=== PATIENT | male | born 1985 | race Caucasian/White ===

== ENCOUNTER 2016-07-02 09:49 | Emergency (ER) | payer SELFPAY ==
[2016-07-02] MEDS ORDERED: Ondansetron 4 MG/2 ML SDV IVPUSH ONE (09:53)
[2016-07-02] MEDS ORDERED: Ketorolac 30 MG/ML SDV IVPUSH ONE (09:53)
[2016-07-02] MEDS ORDERED: Sodium Chloride 0.9% 1,000 ML IV ONE (09:53)
--- NOTE | 2016-07-02 09:53 | EDM.PDOC ---
ED HPI GENERAL MEDICAL PROBLEM - General Chief Complaint: Abdominal Pain Stated Complaint: ABD PAIN Time Seen by Provider: 07/02/16 09:53 Source of Information: Reports: Patient - History of Present Illness INITIAL COMMENTS - FREE TEXT/NARRATIVE: HISTORY AND PHYSICAL: History of present illness: [] Patient has her tenderness right lower quadrant for 2 days no fever nausea vomiting chills sweats Review of systems: As per history of present illness and below otherwise all systems reviewed and negative. Past medical history: As per history of present illness and as reviewed below otherwise noncontributory. Surgical history: As per history of present illness and as reviewed below otherwise noncontributory. Social history: No reported history of drug or alcohol abuse. Family history: As per history of present illness and as reviewed below otherwise noncontributory. Physical exam: HEENT: Atraumatic, normocephalic, pupils reactive, negative for conjunctival pallor or scleral icterus, mucous membranes moist, throat clear, neck supple, nontender, trachea midline. Lungs: Clear to auscultation, breath sounds equal bilaterally, chest nontender. Heart: S1S2, regular, negative for clicks, rubs, or JVD. Abdomen: Soft, nondistended, tender with guarding right lower cord current Negative for masses or hepatosplenomegaly. Negative for costovertebral tenderness. Pelvis: Stable nontender. Genitourinary: Deferred. Rectal: Deferred. Extremities: Atraumatic, negative for cords or calf pain. Neurovascular unremarkable. Neuro: Awake, alert, oriented. Cranial nerves II through XII unremarkable. Cerebellum unremarkable. Motor and sensory unremarkable throughout. Exam nonfocal. Diagnostics: [] Lab as below CT abdomen pelvis with contrast Therapeutics: [] Erica saline 1 L bolus Zofran 8 mg IV Toradol 30 mg IV Cipro 500 by mouth twice a day #20 no refill Toradol 10 mg by mouth 3 times a day when necessary #30 no refill Return if symptoms persist or worsen or fever nausea vomiting chills sweats patient discussed with dr lisa surgeon on-call, he recommends bowel care and RPW Impression: [] Right lower quadrant pain Definitive disposition and diagnosis as appropriate pending reevaluation and review of above. Right Abdominal Pain Score (Numeric/FACES): 4 - Related Data Allergies Allergy/AdvReac Type Severity Reaction Status Date / Time No Known Allergies Allergy Verified 07/02/16 10:08 Home Meds: Home Meds . [No Known Home Meds] 07/02/16 [History] ED ROS GENERAL - Review of Systems Review Of Systems: ROS reveals no pertinent complaints other than HPI. ED EXAM, GI/ABD - Physical Exam Exam: See Below Course - Vital Signs Last Recorded V/S: Last Vital Signs Temp 36.7 C 07/02/16 10:09 Pulse 72 07/02/16 11:43 Resp 16 07/02/16 11:43 BP 122/73 07/02/16 11:43 Pulse Ox 96 07/02/16 11:43 - Orders/Labs/Meds Orders: Active Orders 24 hr Category Date Time Status EKG Documentation Completion [RC] STAT Care 07/02/16 10:24 Active Labs: Laboratory Tests 07/02/16 07/02/16 07/02/16 Range/Units 10:12 10:12 10:12 WBC 6.58 (4.0-11.0) K/uL RBC 4.79 (4.50-5.90) M/uL Hgb 15.1 (13.0-17.0) g/dL Hct 42.7 (38.0-50.0) % MCV 89.1 (80.0-98.0) fL MCH 31.5 (27.0-32.0) pg MCHC 35.4 (31.0-37.0) g/dL RDW Std Deviation 42.1 (28.0-62.0) fl RDW Coeff of Bi 13 (11.0-15.0) % Plt Count 240 (150-400) K/uL MPV 10.20 (7.40-12.00) fL Neut % (Auto) 58.6 (48.0-80.0) % Lymph % (Auto) 29.0 (16.0-40.0) % [place] % (Auto) 10.9 (0.0-15.0) % Eos % (Auto) 1.2 (0.0-7.0) % Baso % (Auto) 0.3 (0.0-1.5) % Neut # (Auto) 3.9 (1.4-5.7) K/uL Lymph # (Auto) 1.9 (0.6-2.4) K/uL [place] # (Auto) 0.7 (0.0-0.8) K/uL Eos # (Auto) 0.1 (0.0-0.7) K/uL Baso # (Auto) 0.0 (0.0-0.1) K/uL Nucleated RBC % 0.0 /100WBC Nucleated RBCs # 0 K/uL Sodium 140 (136-146) mmol/L Potassium 3.9 (3.5-5.1) mmol/L Chloride 108 (98-110) mmol/L Carbon Dioxide 21 (21-31) mmol/L BUN 9 (6.0-23.0) mg/dL Creatinine 0.9 (0.6-1.5) mg/dL Est Cr Clr Drug Dosing 110.17 mL/min Estimated GFR (MDRD) > 60.0 ml/min Glucose 96 (60-110) mg/dL Calcium 9.0 (8.8-10.8) mg/dL Total Bilirubin 1.7 H (0.1-1.5) mg/dL AST 20 (5-40) IU/L ALT 36 (8-54) IU/L Alkaline Phosphatase 64 (40-150) Troponin I < 0.10 (0.0-0.29) NG/ML Total Protein 6.7 (6.0-8.0) g/dL Albumin 4.3 (3.5-5.0) g/dL Globulin 2.4 (2.0-3.5) g/dL Albumin/Globulin Ratio 1.8 (1.3-2.8) Amylase 73 (10-90) U/L Lipase 8 (7-80) U/L Urine Color Urine Appearance Urine pH (5.0-8.0) Ur Specific [place] (1.001-1.035) Urine Protein (NEGATIVE) mg/dL Urine Glucose (UA) (NEGATIVE) mg/dL Urine Ketones (NEGATIVE) mg/dL Urine Occult Blood (NEGATIVE) Urine Nitrite (NEGATIVE) Urine Bilirubin (NEGATIVE) Urine Urobilinogen (<2.0) EU/dL Ur Leukocyte Esterase (NEGATIVE) Urine RBC (0-2/HPF) Urine WBC (0-5/HPF) Ur Squamous Epith Cells Urine Bacteria (NEGATIVE) 07/02/16 Range/Units 12:10 WBC (4.0-11.0) K/uL RBC (4.50-5.90) M/uL Hgb (13.0-17.0) g/dL Hct (38.0-50.0) % MCV (80.0-98.0) fL MCH (27.0-32.0) pg MCHC (31.0-37.0) g/dL RDW Std Deviation (28.0-62.0) fl RDW Coeff of Bi (11.0-15.0) % Plt Count (150-400) K/uL MPV (7.40-12.00) fL Neut % (Auto) (48.0-80.0) % Lymph % (Auto) (16.0-40.0) % [place] % (Auto) (0.0-15.0) % Eos % (Auto) (0.0-7.0) % Baso % (Auto) (0.0-1.5) % Neut # (Auto) (1.4-5.7) K/uL Lymph # (Auto) (0.6-2.4) K/uL [place] # (Auto) (0.0-0.8) K/uL Eos # (Auto) (0.0-0.7) K/uL Baso # (Auto) (0.0-0.1) K/uL Nucleated RBC % /100WBC Nucleated RBCs # K/uL Sodium (136-146) mmol/L Potassium (3.5-5.1) mmol/L Chloride (98-110) mmol/L Carbon Dioxide (21-31) mmol/L BUN (6.0-23.0) mg/dL Creatinine (0.6-1.5) mg/dL Est Cr Clr Drug Dosing mL/min Estimated GFR (MDRD) ml/min Glucose (60-110) mg/dL Calcium (8.8-10.8) mg/dL Total Bilirubin (0.1-1.5) mg/dL AST (5-40) IU/L ALT (8-54) IU/L Alkaline Phosphatase (40-150) Troponin I (0.0-0.29) NG/ML Total Protein (6.0-8.0) g/dL Albumin (3.5-5.0) g/dL Globulin (2.0-3.5) g/dL Albumin/Globulin Ratio (1.3-2.8) Amylase (10-90) U/L Lipase (7-80) U/L Urine Color STRAW Urine Appearance CLEAR Urine pH 7.5 (5.0-8.0) Ur Specific [place] 1.010 (1.001-1.035) Urine Protein NEGATIVE (NEGATIVE) mg/dL Urine Glucose (UA) NEGATIVE (NEGATIVE) mg/dL Urine Ketones NEGATIVE (NEGATIVE) mg/dL Urine Occult Blood NEGATIVE (NEGATIVE) Urine Nitrite NEGATIVE (NEGATIVE) Urine Bilirubin NEGATIVE (NEGATIVE) Urine Urobilinogen 0.2 (<2.0) EU/dL Ur Leukocyte Esterase NEGATIVE (NEGATIVE) Urine RBC NONE SEEN (0-2/HPF) Urine WBC NONE SEEN (0-5/HPF) Ur Squamous Epith Cells RARE Urine Bacteria NOT SEEN (NEGATIVE) Meds: Medications Discontinued Medications Generic Name Dose Route Start Last Admin Trade Name Freq PRN Reason Stop Dose Admin Sodium Chloride 1,000 mls @ 999 mls/hr 07/02/16 09:53 07/02/16 10:13 Normal Saline IV 07/02/16 10:53 999 mls/hr STAT ONE Administration Iopamidol 100 ml 07/02/16 11:07 07/02/16 11:07 Isovue Multipack-370 (76%) IVPUSH 07/02/16 11:08 100 ml ONETIME STA Administration Ketorolac Tromethamine 30 mg 07/02/16 09:53 07/02/16 10:14 Toradol IVPUSH 07/02/16 09:54 30 mg ONETIME ONE Administration Ondansetron HCl 8 mg 07/02/16 09:53 07/02/16 10:14 Zofran IVPUSH 07/02/16 09:54 8 mg ONETIME ONE Administration Departure - Departure Time of Disposition: 13:16 Disposition: Home, Self-Care 01 Condition: good Clinical Impression: Abdominal pain - Discharge Information Forms: ED Department Discharge Additional Instructions: MiraLax may benefit Medication as prescribed Return if symptoms persist or worsen or if pain increases or fever nausea vomiting chills sweats despite treatment Again it is less likely with negative lab and negative CT however appendicitis cannot be completely ruled out if any of the above symptoms develop return to emergency room for evaluation otherwise followup with primary care in one week [facility] [address] [place] [id number] The following information is given to patients seen in the emergency department who are being discharged to home. This information is to outline your options for follow-up care. We provide all patients seen in our emergency department with a follow-up referral. The need for follow-up, as well as the timing and circumstances, are variable depending upon the specifics of your emergency department visit. If you don't have a primary care physician on staff, we will provide you with a referral. We always advise you to contact your personal physician following an emergency department visit to inform them of the circumstance of the visit and for follow-up with them and/or the need for any referrals to a consulting specialist. The emergency department will also refer you to a specialist when appropriate. This referral assures that you have the opportunity for follow-up care with a specialist. All of these measure are taken in an effort to provide you with optimal care, which includes your follow-up. Under all circumstances we always encourage you to contact your private physician who remains a resource for coordinating your care. When calling for follow-up care, please make the office aware that this follow-up is from your recent emergency room visit. If for any reason you are refused follow-up, please contact the [facility] emergency department at and asked to speak to the emergency department charge nurse. - My Orders Last 24 Hours: My Active Orders 07/02/16 10:24 EKG Documentation Completion [RC] STAT - Assessment/Plan Last 24 Hours: My Active Orders 07/02/16 10:24 EKG Documentation Completion [RC] STAT
[2016-07-02 10:56] LABS: CHLORIDE,CL 108 mmol/L (98-110); SODIUM,NA 140 mmol/L (136-146)
[2016-07-02] MEDS ORDERED: Iopamidol 755 MG/ML 500 ML Multipack Bottle IVPUSH STA (11:07)
--- NOTE | 2016-07-02 11:51 | CT ---
CT of the abdomen and pelvis with and without contrast. HISTORY: Pain TECHNIQUE: Axial CT images were obtained of the abdomen and pelvis before and following administrati on of 100 mL of Isovue-370 without complication. Coronal and sagittal reconstructions obtained. FINDINGS: The lung bases are clear, no pleural effusion. There is mild focal fatty infiltration of the liver near the falciform ligament where generalized mi ld fatty infiltration of the liver. The adrenal glands, spleen, and pancreas appear normal. The gall bladder is normal. No bulky retroperitoneal lymphadenopathy or abdominal ascites. The kidneys enhanc e and function symmetrically without evidence of obstructive uropathy. Tiny fat-containing umbilical hernia. The large and small bowel are normal in caliber without evidence of obstruction. No pericolonic infl ammation or stranding. Minimal diverticulosis without evidence of diverticulitis. The appendix appea rs normal. No bulky pelvic lymphadenopathy or free pelvic fluid. The urinary bladder is normal. No suspicious osseous abnormalities identified. IMPRESSION: 1. Mild fatty infiltration of liver. 2. No acute findings demonstrated within the abdomen or pelvis. 3. Few scattered diverticula without evidence of diverticulitis.
[2016-07-02 14:17] VITALS: BP 126/89
== END 2016-07-02 13:28 | disposition home or self-care (01) ==
LOC: MW.ED 09:49
DX: R10.31 Right lower quadrant pain (principal)
CPT/HCPCS: 36415; 74178; 80053; 81001; 82150; 83690; 84484; 85025; 93005; 96361; 96374; 96375; 99284; J1885; J2405; J7040; Q9967